=== PATIENT | female | born 1980 | race Caucasian/White ===

== ENCOUNTER 2017-10-21 09:51 | Emergency (ER) | payer OTHER ==
[~2017-10-21] VITALS: Ht 165.1 cm; Wt 87.1 kg
[~2017-10-21 09:51] MED LIST: KLONOPIN0.5 MG PO; LAMICTAL200 MG PO; OMEPRAZOLE20 MG PO; PAROXETINE HCL30 MG PO; PROPRANOLOL HCL60 M1 PO
[2017-10-21] MEDS ORDERED: METOPROLOL SUCC25 MG PO (10:09)
[2017-10-22] MEDS ORDERED: TOPROL XL50 MG PO (14:31)
[2017-10-22] MEDS ORDERED: LEXAPRO5 MG PO (14:33)
== END 2017-10-21 12:13 | disposition home or self-care (01) ==
LOC: ED 09:51
DX: I10 Essential (primary) hypertension (principal); F41.9 Anxiety disorder, unspecified; F31.9 Bipolar disorder, unspecified; Z79.899 Other long term (current) drug therapy
CPT/HCPCS: 80053; 81001; 85025; 96374; 99284; J2060

== ENCOUNTER 2017-10-22 13:58 | Emergency (ER) | payer OTHER ==
[~2017-10-22] VITALS: Ht 165.1 cm; Wt 87.1 kg
[~2017-10-22 13:58] MED LIST changes: +METOPROLOL SUCC25 MG PO
[2017-10-22] MEDS ORDERED: TOPROL XL50 MG PO (14:31)
[2017-10-22] MEDS ORDERED: LEXAPRO5 MG PO (14:33)
== END 2017-10-22 16:44 | disposition home or self-care (01) ==
LOC: ED 13:58
DX: I10 Essential (primary) hypertension (principal); F41.9 Anxiety disorder, unspecified; Z79.899 Other long term (current) drug therapy
CPT/HCPCS: 70450; 84443; 99284

== ENCOUNTER 2018-10-26 10:37 | Emergency (ER) | payer OTHER ==
[~2018-10-26] VITALS: Ht 165.1 cm; Wt 87.1 kg
--- OUTSIDE RECORDS SUMMARY | ~2018-10-26 | XMS | Clinical Summary ---
Demographics + + + | Address | [address] | | | [place] [address] | + + + | Home Phone | | + + + | Preferred Language | Unknown | + + + | Marital Status | | + + + | Christian Affiliation | Unknown | + + + | Race | Unknown | + + + | Ethnic Group | Unknown | + + + Author + + + | Author | [facility] | | | and [place] | + + + | Organization | [facility] | | | and [place] | + + + | Address | Unknown | + + + | Phone | Unavailable | + + + Care Team Providers + +------+ + | Care Clarity Developer Name | Role | Phone | + +------+ + | Jannet Hammonds PA-C | PP | | + +------+ + Allergies Not on File Medications Not on file Active Problems Not on file Social History + +-------+ +--------+------+ | Tobacco Use | Types | Packs/Day | Years | Date | | | | | Used | | + +-------+ +--------+------+ | Never Assessed | | | | | + +-------+ +--------+------+ + + + | Sex Assigned at | Date Recorded | | | | + + + | Not on file | | + + + + + + + | Job Start Date | Occupation | Industry | + + + + | Not on file | Not on file | Not on file | + + + + + + + + | Travel History | Travel Start | Travel End | + + + + + + | No recent travel history available. | + + Plan of Treatment + + + + + | Health Maintenance | Due Date | Last Done | Comments | + + + + + | Vaccine: | | | | | Dtap/Tdap/Td (1 - | 7 | | | | Tdap) | | | | + + + + + | Cervical Cancer | | | | | Screening (Pap) | 8 | | | + + + + + | Vaccine: Influenza | | | | | (Season Ended) | 9 | | | + + + + + Results Not on filefrom Last 3 Months Insurance +-------+--------+ +--------+ + +------+ | Payer | Benefi | Subscriber | Effect | Phone | Address | Type | | | t Plan | ID | tavo | | | | | | / | | Dates | | | | | | Group | | | | | | +-------+--------+ +--------+ + +------+ | MODA | MODA | [id number] | 07/08/19 | [phone] | [address] | PPO | | | [place] | | [address]Pre | 9 | [id number] | | | | | | sent | | [place], | | | | [place] | | | | [place] [address] | | | | Y PPO | | | | | | +-------+--------+ +--------+ + +------+ + +--------+ +--------+ + + | Guarantor Name | Accoun | Relation to | Date | Phone | Billing Address | | | t Type | Patient | of | | | | | | | | | | + +--------+ +--------+ + + | Mary Lugo | Person | Self | [birth year] | [address] | | | al/[place] | | 1980 | [phone] | [place] [address] | | | [place] | | | 1 (Home) | | + +--------+ +--------+ + + Advance Directives Patient has advance care planning documents on file. For more information, please contact:[facility] [place] [address]"
--- OUTSIDE RECORDS SUMMARY | ~2018-10-26 | XMS | Clinical Summary ---
Demographics + + + | Address | [address] | | | [place] [address] | + + + | Home Phone | | + + + | Preferred Language | Unknown | + + + | Marital Status | | + + + | Voodoo Affiliation | Unknown | + + + | Race | Unknown | + + + | Ethnic Group | Unknown | + + + Author + + + | Author | [facility] | | | and [place] | + + + | Organization | [facility] | | | and [place] | + + + | Address | Unknown | + + + | Phone | Unavailable | + + + Care Team Providers + +------+ + | Care Sales And Marketing Analyst Name | Role | Phone | + [...] + +------+ | MODA | MODA | [id number] | [birth year] | [phone] | [address] | PPO | | | [place] | | [address]Pre | 9 | [phone] | | | | | | sent | | [place], | | | | [place] | | | | [place] [address] | | | | Y PPO | [...] | 1980 | [phone] | [place] [address] | | | [place] | | | 1 (Home) | | + +--------+ +--------+ + + Advance Directives Patient has advance care planning documents on file. For more information, please contact:[facility] and [facility] [place] [address]"
[~2018-10-26 10:37] MED LIST changes: +LEXAPRO5 MG PO; +TOPROL XL50 MG PO
--- OUTSIDE RECORDS SUMMARY | 2018-10-26 10:40 | XMS ---
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 EDrea VISIT COUNT (12 MO.) 1 JAZZ Stout TOTAL 1 NOTE: Visits indicate total known visits. ED/UCC VISIT TRACKING (12 MO.) 10/26/2018 10:[address] [facility] [place] TYPE: Emergency COMPLAINT: - POSS OD,MEDICATION REACTION INPATIENT VISIT TRACKING (12 MO.) No inpatient visits to display in this time frame [id number]
[2018-10-26] MEDS ORDERED: PROPRANOLOL HCL20 MG PO (10:48)
[2018-10-26] MEDS ORDERED: LITHIUM CARBON600 MG PO (10:49)
== END 2018-10-26 14:48 | disposition home or self-care (01) ==
LOC: ED 10:37
DX: T43.591A Poisoning by other antipsychotics and neuroleptics, accidental (unintentional), initial encounter (principal); I10 Essential (primary) hypertension; F31.9 Bipolar disorder, unspecified; F41.9 Anxiety disorder, unspecified; F17.200 Nicotine dependence, unspecified, uncomplicated; Z79.899 Other long term (current) drug therapy
CPT/HCPCS: 80053; 80178; 85025; 96361; 96374; 99284-25; J2405; J7030

== ENCOUNTER 2021-01-23 10:18 | Emergency (ER) | payer OTHER ==
[~2021-01-23] VITALS: Ht 165.1 cm; Wt 86.2 kg
[~2021-01-23 10:18] MED LIST changes: +LITHIUM CARBON600 MG PO; +PROPRANOLOL HCL20 MG PO
--- OUTSIDE RECORDS SUMMARY | 2021-01-23 10:22 | XMS ---
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 Buck VISIT COUNT (12 MO.) 1 JAZZ Stout TOTAL 1 NOTE: Visits indicate total known visits. ED/UCC VISIT TRACKING (12 MO.) 01/23/2021 10:19 [facility] [place] TYPE: Emergency COMPLAINT: - DIZZINESS, HIGH BLOOD PRESSURE INPATIENT VISIT TRACKING (12 MO.) No inpatient visits to display in this time frame [id number]
--- NOTE | 2021-01-23 17:35 | EKG ---
[facility] [address] [facility] [place] [address] Signed Normal sinus rhythm Normal ECG No previous ECGs available Confirmed by MALU GARDNER MD ([id number]) on 01/23/2021 5:34:56 PM Electronically Signed By: MALU GARDNER MD 01/23/21 1735 PATIENT NAME: EDU DINH Electrocardiogram DATE OF : 76 PHYSICIAN: MALU GARDNER MD REPORT #: [id number] REPORT IS CONFIDENTIAL AND NOT TO BE RELEASED WITHOUT AUTHORIZATION
== END 2021-01-23 12:37 | disposition home or self-care (01) ==
LOC: ED 10:18
DX: R42 Dizziness and giddiness (principal); R51.9 Headache, unspecified; I10 Essential (primary) hypertension; Z87.891 Personal history of nicotine dependence; Z79.899 Other long term (current) drug therapy
CPT/HCPCS: 93005; 93010; 96374; 99284-25; J1885